=== PATIENT | female | born 1950 | race Two or more races ===

== ENCOUNTER 2018-09-21 05:45 | Day surgery (SDC) | payer OTHER ==
[~2018-09-21 05:45] MED LIST: DIGOX125 MCG PO; GABAPENTIN400 MG PO; PEPCID40 MG PO; PROTONIX40 M1 PO; [UNRECOGNIZED DRUG - OTHER] PO
[2018-09-21] MEDS ORDERED: BACTRIM DS TAB1 EACH PO (11:59)
[2018-09-21] MEDS ORDERED: PERCOCET 5-3251 EACH PO (11:59)
== END 2018-09-21 16:40 | disposition home or self-care (01) ==
LOC: CIR.AMB 05:45
DX: C21.1 Malignant neoplasm of anal canal (principal); C79.2 Secondary malignant neoplasm of skin

== ENCOUNTER 2022-05-20 05:16 | Day surgery (SDC) | payer OTHER ==
[~2022-05-20] VITALS: Ht 157.5 cm; Wt 66.7 kg
[~2022-05-20 05:16] MED LIST changes: +AVAPRO150 MG PO; +BACTRIM DS TAB1 EACH PO; +GABAPENTIN; +MELOXICAM15 MG PO; +OMEPRAZOLE40 MG PO; +PERCOCET 5-3251 EACH PO; +TOPROL XL50 M1 PO
[2022-05-20] MEDS ORDERED: KETO10TA2 PO (12:17)
[2022-05-20] MEDS ORDERED: DERMOPLAST PAIN78 GM TOP (12:17)
[2022-05-20] MEDS ORDERED: NEURONTIN300 MG PO (12:17)
== END 2022-05-20 14:45 | disposition home or self-care (01) ==
LOC: CIR.AMB 05:16
PROVIDERS: ATTEND Surgery
DX: K62.4 Stenosis of anus and rectum (principal); K62.7 Radiation proctitis; Z92.3 Personal history of irradiation; R15.2 Fecal urgency; R59.0 Localized enlarged lymph nodes; R39.15 Urgency of urination; I10 Essential (primary) hypertension; I49.9 Cardiac arrhythmia, unspecified